=== PATIENT | male | born 1965 | race Caucasian/White ===

== ENCOUNTER 2016-11-20 18:22 | Inpatient (IN) | payer OTHER ==
[~2016-11-20] VITALS: Ht 193 cm; Wt 161.0 kg
[~2016-11-20 18:22] MED LIST: ANAPROX DS550 M1 PO; ASPIRIN81 M1; CHILD ASPIRIN81 M1 PO; Coumadin,Jantoven PO; FISH OIL 1,0001 EAC7; FISH OIL CONC1 EACH PO; FLOMAX0.4 MG PO; HYDROCHLOROTHIA25 MG PO; Hydrodiuril,Oretic,E PO; Lovenox SC; MULTIVITAMIN1 EAC2; MULTIVITAMIN1 EAC2 PO; Omega III EPA + DHA PO; PRAVACHOL20 MG; PRINIVIL20 MG; VASOTEC20 MG PO; VICODIN 5-3001 EACH PO; Vasotec PO; ZOFRAN4 MG PO
[2016-11-20 19:52] LABS: EOSINOPHIL (%) 0.6 % (0-5); EOSINOPHIL COUNT 0.1 K/uL (0-0.3); HEMATOCRIT 47.1 % (38.0-50.0); IMMATURE GRANULOCYTE (%) 0.6 % (0.0-0.7); IMMATURE GRANULOCYTE COUNT 0.1 K/uL; INSTRUMENT ABS NEUTROPHIL CT 7.7 K/uL; LYMPHOCYTE COUNT 1.1 K/uL (1.0-2.8); MCH 30.2 PG (29.0-34.0); MCV 86.3 FL (86-99); MEAN PLAT.VOLUME 10.3 uM^3 (9.0-12.4); MONOCYTE (%) 7.9 % (3-12); MONOCYTE COUNT 0.8 K/uL (0-0.8); NEUTROPHIL (%) 78.9 % (45-76); NEUTROPHIL COUNT 7.7 K/uL (1.8-6.4); PLATELET COUNT 199 K/uL (156-360); RBC DIS.WIDTH-CV 12.3 % (11.8-14.6); RBC DIS.WIDTH-SD 38.1 % (39-53); RED BLOOD COUNT 5.46 M/uL (4.00-5.50); WHITE BLOOD COUNT 9.8 K/uL (4.1-10.2)
[2016-11-20 20:03] LABS: CHLORIDE 103 mEq/L (99-109); POTASSIUM 4.3 mEq/L (3.7-5.4); SODIUM 132 mEq/L (136-147)
[2016-11-20 20:05] LABS: GLUCOSE 388 mg/dL (70-99)
[2016-11-20 20:06] LABS: ANION GAP 11 MEQ/L (2-14)
[2016-11-20 20:09] LABS: GFR ESTIMATE (CALCULATED) > 59 mL/min/
[2016-11-20 20:10] LABS: UREA NITROGEN (BUN) 13 mg/dL (9-23)
[2016-11-20 20:15] LABS: TROP-I INTERPRETATION NEGATIVE; TROPONIN-I 0.04 ng/mL (0.0-0.30)
[2016-11-20 20:15] LABS: D-DIMER ELISA > 4.00 mg/L FEU (< 0.57)
[2016-11-20 22:12] LABS: PROTHROMBIN TIME 10.2 (9.2-11.2); PTT 26.4 (25-32)
[2016-11-21 03:20] VITALS: BP 142/85
[2016-11-21 05:27] VITALS: BP 135/78
[2016-11-21 06:24] LABS: HEMATOCRIT 43.1 % (38.0-50.0); MCH 30.1 PG (29.0-34.0); MCHC 34.6 G/DL (30.0-36.0); MCV 87.1 FL (86-99); MEAN PLAT.VOLUME 10.6 uM^3 (9.0-12.4); PLATELET COUNT 190 K/uL (156-360); RBC DIS.WIDTH-CV 12.3 % (11.8-14.6); RBC DIS.WIDTH-SD 39.1 % (39-53); RED BLOOD COUNT 4.95 M/uL (4.00-5.50); WHITE BLOOD COUNT 8.1 K/uL (4.1-10.2)
[2016-11-21 06:47] LABS: Estimated Average Glucose 283 mg/dL (70-123); HEMOGLOBIN A1c (GLYCOHEMOGLOB) 11.5 % HGB (Below 5.7)
[2016-11-21 06:48] LABS: PROTHROMBIN TIME 10.4 (9.2-11.2); PTT 33.5 (25-32)
[2016-11-21 06:52] LABS: ALKALINE PHOSPHATASE 79 IU/L (3-129); ANION GAP 10 MEQ/L (2-14); CHLORIDE 102 MEQ/L (99-109); GFR ESTIMATE (CALCULATED) > 59 mL/min/; GLUCOSE 327 mg/dL (70-99); POTASSIUM 4.1 MEQ/L (3.7-5.4); SAMPLE HEMOLYSIS CHECK 0; SAMPLE ICTERIC CHECK 0; SAMPLE LIPEMIA CHECK 0; SODIUM 133 MEQ/L (136-147); TOTAL BILIRUBIN 0.8 MG/DL (0.0-1.0); UREA NITROGEN (BUN) 12 mg/dL (9-23)
[2016-11-21 08:04] VITALS: BP 114/77
[2016-11-21 12:10] VITALS: BP 140/80
[2016-11-21 15:32] LABS: TROP-I INTERPRETATION NEGATIVE; TROPONIN-I 0.02 ng/mL (0.0-0.30)
[2016-11-21 16:31] LABS: POINT-OF-CARE METER ID UU14174216
[2016-11-21 20:21] VITALS: BP 136/91
[2016-11-21 21:16] LABS: POINT-OF-CARE METER ID UU14174216
[2016-11-22 00:27] VITALS: BP 131/67
[2016-11-22 03:20] VITALS: BP 131/81
[2016-11-22 06:30] LABS: EOSINOPHIL (%) 2.3 % (0-5); EOSINOPHIL COUNT 0.2 K/uL (0-0.3); HEMATOCRIT 42.2 % (38.0-50.0); IMMATURE GRANULOCYTE (%) 0.7 % (0.0-0.7); IMMATURE GRANULOCYTE COUNT 0.1 K/uL; INSTRUMENT ABS NEUTROPHIL CT 4.7 K/uL; MCHC 34.1 G/DL (30.0-36.0); MCV 87.9 FL (86-99); MEAN PLAT.VOLUME 10.3 uM^3 (9.0-12.4); MONOCYTE (%) 7.8 % (3-12); MONOCYTE COUNT 0.6 K/uL (0-0.8); NEUTROPHIL (%) 62.7 % (45-76); NEUTROPHIL COUNT 4.7 K/uL (1.8-6.4); PLATELET COUNT 180 K/uL (156-360); RBC DIS.WIDTH-CV 12.4 % (11.8-14.6); RBC DIS.WIDTH-SD 39.9 % (39-53); WHITE BLOOD COUNT 7.5 K/uL (4.1-10.2)
[2016-11-22 07:18] LABS: ANION GAP 12 MEQ/L (2-14); CHLORIDE 102 MEQ/L (99-109); GFR ESTIMATE (CALCULATED) > 59 mL/min/; GLUCOSE 284 mg/dL (70-99); POTASSIUM 4.2 MEQ/L (3.7-5.4); SAMPLE HEMOLYSIS CHECK 0; SAMPLE ICTERIC CHECK 0; SAMPLE LIPEMIA CHECK 0; SODIUM 131 MEQ/L (136-147); UREA NITROGEN (BUN) 18 mg/dL (9-23)
[2016-11-22 07:54] VITALS: BP 132/86
[2016-11-22 11:54] VITALS: BP 138/64
[2016-11-22 16:38] VITALS: BP 122/84
[2016-11-22 19:45] VITALS: BP 114/75
[2016-11-22 21:58] LABS: POINT-OF-CARE METER ID UU14174216
[2016-11-23 00:10] VITALS: BP 138/85
[2016-11-23 04:43] VITALS: BP 125/71
[2016-11-23 07:36] LABS: EOSINOPHIL COUNT 0.2 K/uL (0-0.3); HEMATOCRIT 43.5 % (38.0-50.0); IMMATURE GRANULOCYTE (%) 0.8 % (0.0-0.7); IMMATURE GRANULOCYTE COUNT 0.1 K/uL; INSTRUMENT ABS NEUTROPHIL CT 5.2 K/uL; LYMPHOCYTE COUNT 1.5 K/uL (1.0-2.8); MCH 29.9 PG (29.0-34.0); MCV 87.9 FL (86-99); MEAN PLAT.VOLUME 10.6 uM^3 (9.0-12.4); MONOCYTE (%) 7.6 % (3-12); MONOCYTE COUNT 0.6 K/uL (0-0.8); NEUTROPHIL COUNT 5.2 K/uL (1.8-6.4); PLATELET COUNT 214 K/uL (156-360); RBC DIS.WIDTH-CV 12.5 % (11.8-14.6); RED BLOOD COUNT 4.95 M/uL (4.00-5.50); WHITE BLOOD COUNT 7.5 K/uL (4.1-10.2)
[2016-11-23 07:47] LABS: PROTHROMBIN TIME 10.4 (9.2-11.2)
[2016-11-23 07:58] LABS: POINT-OF-CARE METER ID UU13113781
[2016-11-23 08:00] VITALS: BP 122/64
[2016-11-23 08:31] LABS: CHLORIDE 104 mEq/L (99-109); POTASSIUM 4.5 mEq/L (3.7-5.4); SODIUM 135 mEq/L (136-147)
[2016-11-23 08:33] LABS: GLUCOSE 219 mg/dL (70-99)
[2016-11-23 08:34] LABS: ANION GAP 12 MEQ/L (2-14)
[2016-11-23 08:37] LABS: GFR ESTIMATE (CALCULATED) > 59 mL/min/
[2016-11-23 08:38] LABS: UREA NITROGEN (BUN) 16 mg/dL (9-23)
[2016-11-23 11:38] LABS: POINT-OF-CARE METER ID UU13113781
[2016-11-23 11:48] VITALS: BP 146/82
[2016-11-23 16:30] VITALS: BP 142/87
[2016-11-23] MEDS ORDERED: XARELTO20 MG PO (16:47)
[2016-11-23] MEDS ORDERED: XARELTO15 MG PO (16:47)
[2016-11-23] MEDS ORDERED: METFORMIN HCL500 MG PO (16:47)
[2016-11-23] MEDS ORDERED: JANUVIA100 MG PO (16:48)
[2016-11-23] MEDS ORDERED: ONGLYZA5 MG PO (17:05)
[2016-11-26 18:33] LABS: ANTITHROMBIN III ACTIVITY+ 86 (80-120); DRVVT Mixing Study Interp Not Indicated (()); PROTEIN C FUNCTIONAL ACTIVITY+ 135 % (70-180); PTT-LA 41 sec (<=40); Protein S, Free 100 % normal (57-171); dRVVT Screen 36 sec (<=45)
== END 2016-11-23 18:18 | disposition home or self-care (01) | DRG 176 ==
LOC: EXP 18:22 → EME 18:22 → EDOF 11-21 02:11 → 4EAST 11-21 03:13
PROVIDERS: Emergency Medicine; Hospitalist
DX: I26.99 Other pulmonary embolism without acute cor pulmonale (principal); E66.01 Morbid (severe) obesity due to excess calories; Z68.41 Body mass index [BMI] 40.0-44.9, adult; I82.411 Acute embolism and thrombosis of right femoral vein; I82.441 Acute embolism and thrombosis of right tibial vein; E11.9 Type 2 diabetes mellitus without complications; E78.5 Hyperlipidemia, unspecified; I10 Essential (primary) hypertension
CPT/HCPCS: 71010; 71020; 71275; 80048; 80053; 81240 90; 82948; 83036; 83090 90; 83880; 84484; 85025; 85027; 85240 90; 85300 90; 85303 90; 85305 90; 85306 90; 85379; 85610; 85613 90; 85730; 85730 90; 86146 90; 86147 90; 93005; 93970; 99281; 99285; J1650; J1815; J7030

== ENCOUNTER → 2017-05-13 | Outpatient (CLI) | payer OTHER ==
[~2017-05-13] MED LIST changes: +GLUCOPHAGE850 MG PO; +JANUVIA100 MG PO; +METFORMIN HCL500 MG PO; +ONGLYZA5 MG PO; +XARELTO15 MG PO; +XARELTO20 MG PO; +ZESTRIL10 MG PO
== END | disposition home or self-care (01) ==
LOC: CDC 11:18
DX: Z01.810 Encounter for preprocedural cardiovascular examination (principal); M54.2 Cervicalgia
CPT/HCPCS: 93000

== ENCOUNTER 2017-05-20 08:50 | Day surgery (SDC) | payer OTHER ==
[~2017-05-20] VITALS: Ht 193 cm; Wt 181.8 kg
[2017-05-20 09:16] VITALS: BP 138/72
[2017-05-20 10:04] LABS: POINT-OF-CARE METER ID UU14174212
[2017-05-20 15:41] LABS: POINT-OF-CARE METER ID UU13113675; POINT-OF-CARE USER ID ADMKMM76
[2017-05-20] MEDS ORDERED: CYCLOBENZAPRINE10 MG PO (16:23)
[2017-05-20] MEDS ORDERED: HYDROCODON-ACE1 EAC7 PO (16:23)
[2017-05-20 16:55] VITALS: BP 127/76
[2017-05-20 17:50] VITALS: BP 122/68
== END 2017-05-20 18:05 | disposition home or self-care (01) ==
LOC: SDC 08:50
PROVIDERS: Neurological Surgery
DX: M50.122 Cervical disc disorder at C5-C6 level with radiculopathy (principal); I10 Essential (primary) hypertension; E11.9 Type 2 diabetes mellitus without complications; G47.30 Sleep apnea, unspecified; F17.220 Nicotine dependence, chewing tobacco, uncomplicated; E66.01 Morbid (severe) obesity due to excess calories; Z68.41 Body mass index [BMI] 40.0-44.9, adult
CPT/HCPCS: 72020; 76000; 82948; C1713; C1821; J0330; J0690; J1100; J1170; J2405; J2710; J3010

== ENCOUNTER 2017-12-20 13:44 | Emergency (ER) | payer OTHER ==
[~2017-12-20] VITALS: Ht 193 cm; Wt 198.4 kg
[~2017-12-20 13:44] MED LIST changes: +CYCLOBENZAPRINE10 MG PO; +HYDROCODON-ACE1 EAC7 PO
[2017-12-20 14:07] LABS: BASOPHIL (%) 0.5 % (0-1); BASOPHIL COUNT 0.1 K/uL (0-0.1); EOSINOPHIL (%) 1.3 % (0-5); EOSINOPHIL COUNT 0.1 K/uL (0-0.3); HEMOGLOBIN 15.4 G/DL (12.5-16.6); IMMATURE GRANULOCYTE (%) 0.4 % (0.0-0.7); LYMPHOCYTE (%) 12.5 % (15-42); LYMPHOCYTE COUNT 1.3 K/uL (1.0-2.8); MCH 30.9 PG (29.0-34.0); MCV 88.4 FL (86-99); MONOCYTE (%) 6.4 % (3-12); MONOCYTE COUNT 0.7 K/uL (0-0.8); NEUTROPHIL (%) 78.9 % (45-76); PLATELET COUNT 226 K/uL (156-360); RBC DIS.WIDTH-CV 12.7 % (11.8-14.6); RBC DIS.WIDTH-SD 41.2 % (39-53); RED BLOOD COUNT 4.98 M/uL (4.00-5.50); WHITE BLOOD COUNT 10.2 K/uL (4.1-10.2)
[2017-12-20 14:16] LABS: CHLORIDE 100 mEq/L (99-109); POTASSIUM 4.7 mEq/L (3.7-5.4); SODIUM 136 mEq/L (136-147)
[2017-12-20 14:18] LABS: GLUCOSE 361 mg/dL (70-99)
[2017-12-20 14:22] LABS: CREATININE 1.1 mg/dL (0.6-1.3); GFR ESTIMATE (CALCULATED) > 59 mL/min/ (58.99-99999)
[2017-12-20 14:23] LABS: UREA NITROGEN (BUN) 11 mg/dL (9-23)
[2017-12-20] MEDS ORDERED: KEFLEX500 MG PO (15:39)
[2017-12-20 16:02] VITALS: BP 177/96
== END 2017-12-20 16:04 | disposition home or self-care (01) ==
LOC: EME 13:44
PROC: 3E0234Z Introduction of Serum, Toxoid and Vaccine into Muscle, Percutaneous Approach (ICD-10-PCS; principal; 2017-12-20)
DX: L03.116 Cellulitis of left lower limb (principal); E11.9 Type 2 diabetes mellitus without complications; E78.5 Hyperlipidemia, unspecified; Z23 Encounter for immunization; Z79.01 Long term (current) use of anticoagulants; Z79.84 Long term (current) use of oral hypoglycemic drugs; Z98.52 Vasectomy status; Z87.39 Personal history of other diseases of the musculoskeletal system and connective tissue; Z86.711 Personal history of pulmonary embolism; Z87.442 Personal history of urinary calculi; Z98.890 Other specified postprocedural states; Z88.8 Allergy status to other drugs, medicaments and biological substances
CPT/HCPCS: 80048; 83605; 85025; 99281; 99283